=== PATIENT | male | born 1980 | race Caucasian/White ===

== ENCOUNTER 2022-01-19 13:32 | Emergency (ER) | payer BC ==
[2022-01-19] MEDS ORDERED: hydrOXYzine 25 MG TAB ONE (14:48)
[2022-01-19] MEDS ORDERED: Dexamethasone 10 MG/ML VIAL ONE (14:48)
== END 2022-01-19 15:36 | disposition home or self-care (01) ==
LOC: CSHERS 13:32
DX: L23.7 Allergic contact dermatitis due to plants, except food (principal); F17.210 Nicotine dependence, cigarettes, uncomplicated
CPT/HCPCS: 96372; 99282; J1100